=== PATIENT | female | born 1995 | race Caucasian/White ===

== ENCOUNTER → 2020-08-31 12:40 | Outpatient (CLI) | payer OTHER, SELFPAY ==
[2020-08-27 08:18] VITALS: BMI 23.4
--- NOTE | 2020-08-31 12:45 | US_ITS ---
STUDY: ULTRASOUND OF THE FEMALE PELVIS - COMPLETE REASON FOR EXAM: Female, 25 years old. painful/heavy menses LMP: 08/04/2020 TECHNIQUE: Transabdominal and Transvaginal TECHNICAL QUALITY: Adequate. COMPARISON: None. FINDINGS: The uterus is anteverted and is in a midline position. The uterus measures 5.6 x 4.5 x 2.9 cm. Normal uterine cervix. The endometrium measures 5 mm in thickness, and is hyperechoic. There is no demonstrated endometrial mass. There is no demonstrated myometrial mass. I.U.D. - The patient does not have an I.U.D. The right ovary is visualized. The right ovary measures 1.6 x 1.4 x 1.4 cm. There is no right ovarian cyst or ovarian mass. There is no visualized right adnexal mass or complex lesion. There is normal arterial and normal venous vascularity. The left ovary is visualized. The left ovary measures 1.9 x 1.2 x 1.0 cm. There is no left ovarian cyst or ovarian mass. There is no visualized left adnexal mass or complex lesion. There is normal arterial and normal venous vascularity. There is no fluid in the cul-de-sac. The pre void volume of the bladder was ml. The post void volume of the bladder was ml. Polycystic ovary disease: No. US/Transvaginal Non- IMPRESSION: Normal female pelvis. Electronically Signed: Binh Hilario MD at 15:42 EST Tel , Service support ,
--- NOTE | 2020-08-31 12:45 | US_ITS ---
STUDY: ULTRASOUND OF THE FEMALE PELVIS - COMPLETE REASON FOR EXAM: Female, 25 years old. painful/heavy menses LMP: 08/04/2020 TECHNIQUE: Transabdominal and Transvaginal TECHNICAL QUALITY: Adequate. COMPARISON: None. FINDINGS: The uterus is anteverted and is in a midline position. The uterus measures 5.6 x 4.5 x 2.9 cm. Normal uterine cervix. The endometrium measures 5 mm in thickness, and is hyperechoic. There is no demonstrated endometrial mass. There is no demonstrated myometrial mass. I.U.D. - The patient does not have an I.U.D. The right ovary is visualized. The right ovary measures 1.6 x 1.4 x 1.4 cm. There is no right ovarian cyst or ovarian mass. There is no visualized right adnexal mass or complex lesion. There is normal arterial and normal venous vascularity. The left ovary is visualized. The left ovary measures 1.9 x 1.2 x 1.0 cm. There is no left ovarian cyst or ovarian mass. There is no visualized left adnexal mass or complex lesion. There is normal arterial and normal venous vascularity. There is no fluid in the cul-de-sac. The pre void volume of the bladder was ml. The post void volume of the bladder was ml. Polycystic ovary disease: No. US/Pelvic (Non ) IMPRESSION: Normal female pelvis. Electronically Signed: Binh Hilario MD at 15:42 EST Tel , Service support ,
== END ==
PROVIDERS: PCP Family Medicine; Referring Provider Obstetrics & Gynecology; Visit Provider Obstetrics & Gynecology
DX: R10.2 Pelvic and perineal pain (principal)
CPT/HCPCS: 76830; 76856

== ENCOUNTER 2020-09-08 10:50 | Day surgery (SDC) | payer OTHER, SELFPAY ==
[2020-08-27 08:18] VITALS: BMI 23.4
[2020-09-07 10:07] LABS: Hematocrit 46.5 % (37-47); Hemoglobin 14.6 g/dL (12.0-15.0); Mean Corp Hgb Conc 31.4 g/dL (32-36); Mean Corpuscular Hgb 28.1 pg (27.0-32.0); Mean Corpuscular Volume 89.6 fL (81-99); Mean Platelet Vol. 10.8 fl (6.2-12.0); Platelet Count 198 K/mm3 (150-450); RBC Distribution Width CV 13.2 % (11.6-14.6); RBC Distribution Width SD 43.3 fl (35.1-43.9); Red Blood Count 5.19 M/mm3 (4.2-5.4); White Blood Count 5.5 K/mm3 (4.4-11.0)
[2020-09-08] VITALS (9 sets, daily range): BP systolic 99–121; BP diastolic 65–85; PULSE 69–89; RESP 16–20; TEMP 36.1–37.2; O2SAT 100; BMI 23.4
--- NOTE | 2020-09-08 11:19 | PCM.HPOB.BLA ---
- Problem List (1) Pelvic pain Status: Acute History and Physical Date of Admission: 09/08/20 Intake Vital Signs 08/27/20 Height 5 ft 4 in 08/27/20 Weight: 136 lb 8 oz 08/27/20 BP 120/80 Intake Visit Reasons: John, Endometriosis consult, ref by Lázaro [facility] Collection Manager Required: No Is patient in pain?: Yes Allergies No Known Allergies Allergy (Verified 08/27/20 08:19) Medications hyoscyamine sulfate 0.125 mg disintegrating tablet 0.125 mg PO BID-QID PRN 08/19/20 [History Confirmed 08/27/20] rizatriptan 10 mg disintegrating tablet 10 mg PO ONCE PRN 08/19/20 [History Confirmed 08/27/20] topiramate 50 mg tablet 50 mg PO DAILY tab 08/19/20 [History Confirmed 08/27/20] desogestrel 0.15 mg-ethinyl estradiol 0.03 mg tablet 1 tab PO DAILY 08/27/20 [History Confirmed 08/27/20] pantoprazole 40 mg tablet,delayed release 40 mg PO DAILY 08/27/20 [History Confirmed 08/27/20] Post menopausal: No Patient : No : No PFSH Medical History Dysmenorrhea (Acute) Migraine (Acute) Normal colonoscopy (Resolved ~07/15/20) Surgical History (Updated 08/27/20 @ 08:20 by Jeri Rhodes) S/P appendectomy (Resolved) S/P cholecystectomy (Resolved) Family History (Updated 08/27/20 @ 08:21 by Jeri Rhodes) Grandfather Esophageal cancer HPI New, Endometriosis consult, ref by Lázaro Family: Details: SAPPHIRE BURR is a 25 year old who presents for pelvic pain. Reports abdominal pain since June. Last month, started noticing severe pain in her lwoer abdomen around the time of her period. Has been on 7 different control pills. Initially started on OCPs for heavy flow and migraines. Has been on OCPs since 13 years old. Reports severe pain with menses. Reports some relief with NSAIDs. Previously tried depo provera for 9 months and bled continuously. Pain primarily in RLQ. Pain varies from week before period, week of period, and week after. Has not tried continuous OCPs. Reports some discomfort with urination while on period. Reports pain with bowel movements when on periods. Not sexually active. Periods typically last 1 week. Changes protection 7-10x/day on worst day of period. ROS ROS Const Reports system reviewed and no additional complaints, except as documented Card Reports system reviewed and no additional complaints, except as documented Resp Reports system reviewed and no additional complaints, except as documented GI Reports system reviewed and no additional complaints, except as documented Reports system reviewed and no additional complaints, except as documented Musc Reports system reviewed and no additional complaints, except as documented all other systems reviewed and negative Exam Const General: cooperative, healthy appearing, comfortable, well developed, well groomed Orientation: alert, awake, oriented x3 Neck Neck: normal visual inspection, full ROM Resp Effort & Inspection: normal respiratory effort, able to speak in complete sentences, symmetric chest movement Cardio Rate: regular rate Skin General: no rashes or lesions noted, elasticity normal, turgor normal Lesions: no lesions Rashes: no rashes Neuro General: alert, awake, oriented x3 Cranial Nerves: CN's II-XI intact bilaterally, PERRL, EOM intact bilaterally Cognition: normal cognition Speech: speech normal Gait: normal gait Extrem General: normal to inspection, full ROM, no pedal edema Psych Appearance: grossly normal Mental Status: mental status grossly normal Mood: congruent mood Affect: normal affect Speech and Movement: speech and movement normal Attitude: cooperative Thought Process: normal Thought Content: normal Assessment & Plan 1. Pelvic pain R10.2 Plan Patient presents for pelvic pain associated with menses. Has failed 7 different OCPs, depo provera, and NSAIDs in the past. Reports history of ovarian cysts, but has not had an ultrasound - ultrasound ordered Discussed that symptoms are consistent with endometriosis. Discussed that she has failed first line therapy at this time. Discussed that next step in management is laparoscopy for definitive diagnosis. The nature of the procedure was discussed with the patient. Risks, benefits, indications, and alternatives to the procedure were discussed with the patient including bleeding, infection, and visceral or vascular injury. Agreeable to blood products if medically necessary. Discussed possibility of infection inside abdomen or at incision sites which could require outpatient or inpatient antibiotics. Discussed the possibility of injury to uterus, tubes, ovaries, bowel, and bladder. Aware that this could require intra-op consult to general surgery or urology. Also aware of the possibility of prolonged hospitalization or reoperation. Discussed possibility of need to convert to open to procedure. All questions were answered. Patient voices understanding and agrees to proceed. Discussed IUD placement at time of surgery to try to decrease chances of recurrence. Plan for diagnostic laparoscopy, possible fulguration of endometriosis, IUD placement. UPDATE- I have seen the patient and performed any clinically relevant updates to the history and physical exam. Sapphire Escamilla MD
--- NOTE | 2020-09-08 11:21 | PCM.DC.TUB ---
Discharge Diet: No Restrictions, - - Increase fluid intake for 48 hours. Discharge Activity: Return to Normal Activity, May Drive - when you are no longer taking narcotic pain medications., May Shower, May Take a Tub Bath - in 7 days., - - Ambulate often the next week after surgery. Additional Activity Instructions:: Nothing in the vagina for the next 5 days. Call your doctor if your incision/area has: Continuous Slow Oozing, Sudden Increased Bleeding, Increased Pain/ Swelling, Increased Redness, Foul Smelling Discharge, Swelling at the incision site Call your doctor if you observe: Fever of 101 or Higher Allergies/Adverse Reactions: Allergies No Known Allergies Allergy (Verified 09/02/20 13:28) Medications to take at Discharge hyoscyamine sulfate 0.125 mg disintegrating tablet 0.125 mg PO BID-QID PRN 08/19/20 rizatriptan 10 mg disintegrating tablet 10 mg PO ONCE PRN 08/19/20 topiramate 50 mg tablet 50 mg PO QHS tab 08/19/20 desogestrel 0.15 mg-ethinyl estradiol 0.03 mg tablet 1 tab PO DAILY 08/27/20 pantoprazole 40 mg tablet,delayed release 40 mg PO DAILY 08/27/20 Orders to be completed after discharge: ,Urine Time Frame: 09/08/20, Facility: [facility], Location: Laboratory Primary Care Physician: Jessica Johnson PA-C [Primary Care Provider] - Test Results: Test results from this visit will be discussed in further detail at your follow-up appointment, if applicable.
--- NOTE | 2020-09-08 11:25 | PCM.OPRPT ---
Problem List (1) Pelvic pain Status: Acute Report of Operation Date of Procedure: 09/08/20 Pre-Operative Diagnosis: Pelvic pain, suspected endometriosis Post-Operative Diagnosis: Endometriosis Surgery/Procedure Performed:: Diagnostic laparoscopy, fulguration of endometriosis, liletta IUD placement Description of Surgical Findings:: Normal appearing uterus, tubes, and ovaries bilaterally. Implants of endometriosis noted on the left pelvic side wall, anterior abdominal wall near the bladder, bladder peritoneum, ovarian fossa bilaterally, and uterosacral ligaments bilaterally. Surgical changes consistent with prior appendectomy noted. 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 She was prepped and draped in the dorsal lithotomy position with yellofin stirrups. A weighted speculum was placed in the posterior aspect of the vagina and the anterior lip of the cervix was grasped with a single-tooth tenaculum. A Zumi uterine manipulator was placed without difficulty and all other instruments were removed from the vagina. Gloves were changed and attention was directed to the abdomen. The umbilicus was grasped with towel clamps. 10cc of 0.25% marcaine was used to anesthetize the umbilicus. A 5mm incision was made at the base of the umbilicus. A veress needle was inserted without difficulty and intra-abdominal placement was confirmed using the water-drop test. The abdomen was insufflated to 15 mmHg and the veress needle was removed. A 5mm optiview trochar was then placed under direct visualization. Initial survey of the abdominal cavity revealed no evidence of trauma. The above findings were noted. Additional 5mm ports were placed in the right and left lower quadrants. Monopolar cautery attached to a [place] grasper was used to fulgurate all visible areas of endometriosis. All instruments were removed from the abdominal cavity. The port sites were closed in a simple interrupted fashion using 3-0 monocryl and sterile dressings were placed. The uterine manipulator was removed. The cervix was grasped with a single-tooth tenaculum. The Liletta IUD was placed without difficulty using the applicator and the strings were trimmed to approximately 3cm. All instruments were removed from the vagina. The patient was awakened from anesthesia and taken to the recovery room in stable condition. - Complications None apparent - Admit VTE Documentation VTE Present on Admission: No VTE Mechan Device Prophylaxis: SCD's VTE Pharm Prophylaxis ordered?: No Multi Select Codes - Urinary/Genital Urinary/Genital CPT Codes: 73943 Insert IUD, 07037 Laproscopic ablation endometriosis
[2020-09-08] MEDS: Lactated Ringers 1,000 ML 75 ML IV (11:30)
[2020-09-08 12:01] LABS: Internal QC Validated? YES +Cl - CLEAR BKGD; Pregnancy, Urine Negative Negative
[2020-09-08] MEDS: Bupivacaine 0.25% 30 ML Vial (13:00)
[2020-09-08] MEDS: Lubricating Jelly 60 GM Tube 30 GM TOPICAL (13:00)
[2020-09-08] MEDS: Levonorgestrel IUD (Liletta) 1 EACH INTRA-UTER (13:30)
== END 2020-09-08 17:34 | disposition home or self-care (01) ==
LOC: SDC 10:52 → AC 10:52
PROVIDERS: PCP Family Medicine; Referring Provider Obstetrics & Gynecology; Visit Provider Obstetrics & Gynecology
PROC: (CPT 49320; principal; 2020-09-08 12:15)
DX: N80.1 Endometriosis of ovary (principal); N80.3 Endometriosis of pelvic peritoneum; Z30.430 Encounter for insertion of intrauterine contraceptive device; K21.9 Gastro-esophageal reflux disease without esophagitis; K58.9 Irritable bowel syndrome, unspecified; G43.909 Migraine, unspecified, not intractable, without status migrainosus; Z90.49 Acquired absence of other specified parts of digestive tract; Z79.82 Long term (current) use of aspirin; Z79.899 Other long term (current) drug therapy; Z20.828 Contact with and (suspected) exposure to other viral communicable diseases
CPT/HCPCS: 00840; 58300; 58662; 36415; 81025; 85027; 86850; 86900; 86901; 87426; C9803; J7120; J2405

== ENCOUNTER → 2020-12-09 | Outpatient (CLI) | payer OTHER, SELFPAY ==
[2020-12-09 14:51] VITALS: BMI 23.1
== END | disposition home or self-care (01) ==
LOC: LABSPEC 17:37
PROVIDERS: PCP Family Medicine; Visit Provider Obstetrics & Gynecology
DX: N89.8 Other specified noninflammatory disorders of vagina (principal); R10.2 Pelvic and perineal pain
CPT/HCPCS: 87070; 87205

== ENCOUNTER → 2020-12-14 16:27 | Outpatient (CLI) | payer OTHER, SELFPAY ==
[2020-12-09 14:51] VITALS: BMI 23.1
--- NOTE | 2020-12-14 16:30 | US_ITS ---
STUDY: ULTRASOUND OF THE FEMALE PELVIS - COMPLETE REASON FOR EXAM: Female, 25 years old. Pelvic pain LMP: None TECHNIQUE: Transabdominal and Transvaginal TECHNICAL QUALITY: Adequate. COMPARISON: Comparison is made with prior examination dated 08/31/2020. FINDINGS: The uterus is anteverted and is in a midline position. The uterus measures 5.4 cm x 3.8 cm x 2.8 cm. Normal uterine cervix. The endometrium measures 2 mm in thickness, and is hyperechoic. There is no demonstrated endometrial mass. There is no demonstrated myometrial mass. I.U.D. - The patient does have an I.U.D. The right ovary is visualized. The right ovary measures 1.7 cm x 1.4 cm x 1.3 cm. There is no right ovarian cyst or ovarian mass. There is no visualized right adnexal mass or complex lesion. There is normal arterial and normal venous vascularity. The left ovary is visualized. The left ovary measures 3.1 cm x 1.6cm x 1.5 cm. There is no left ovarian cyst or ovarian mass. There is no visualized left adnexal mass or complex lesion. There is normal arterial and normal venous vascularity. There is no fluid in the cul-de-sac. The pre void volume of the bladder was 89.4 ml. Polycystic ovary disease: No. US/Pelvic (Non ) IMPRESSION: IUD is seen within the endometrium. Electronically Signed: Willis Sullivan MD at 13:46 EDT , Service support ,
--- NOTE | 2020-12-14 16:30 | US_ITS ---
STUDY: ULTRASOUND OF THE FEMALE PELVIS - COMPLETE REASON FOR EXAM: Female, 25 years old. Pelvic pain LMP: None TECHNIQUE: Transabdominal and Transvaginal TECHNICAL QUALITY: Adequate. COMPARISON: Comparison is made with prior examination dated 08/31/2020. FINDINGS: The uterus is anteverted and is in a midline position. The uterus measures 5.4 cm x 3.8 cm x 2.8 cm. Normal uterine cervix. The endometrium measures 2 mm in thickness, and is hyperechoic. There is no demonstrated endometrial mass. There is no demonstrated myometrial mass. I.U.D. - The patient does have an I.U.D. The right ovary is visualized. The right ovary measures 1.7 cm x 1.4 cm x 1.3 cm. There is no right ovarian cyst or ovarian mass. There is no visualized right adnexal mass or complex lesion. There is normal arterial and normal venous vascularity. The left ovary is visualized. The left ovary measures 3.1 cm x 1.6cm x 1.5 cm. There is no left ovarian cyst or ovarian mass. There is no visualized left adnexal mass or complex lesion. There is normal arterial and normal venous vascularity. There is no fluid in the cul-de-sac. The pre void volume of the bladder was 89.4 ml. Polycystic ovary disease: No. US/Transvaginal Non- IMPRESSION: IUD is seen within the endometrium. Electronically Signed: Willis Sullivan MD at 13:46 EDT , Service support ,
== END ==
PROVIDERS: PCP Family Medicine; Referring Provider Obstetrics & Gynecology; Visit Provider Obstetrics & Gynecology
DX: R10.2 Pelvic and perineal pain (principal)
CPT/HCPCS: 76830; 76856; 93976

== ENCOUNTER → 2021-08-16 16:14 | Outpatient (CLI) | payer OTHER, SELFPAY ==
[2021-08-16 16:33] LABS: Erythrocyte Sedimentation Rate 2 mm/hr (0-30)
[2021-08-16 17:21] LABS: CRP < 2.90 mg/L (0.0-3.0); Thyroid Stim Hormone (TSH) 0.48 uIU/mL (0.358-3.74)
[2021-08-18 16:09] LABS: Endomysial Antibody IgA Negative (Negative)
[2021-08-18 19:00] LABS: Immunoglobulin A 192 mg/dL (87-352); t-Transglutaminase IgA <2 U/mL (0-3)
[2021-08-19 15:28] LABS: Vitamin D 1,25-Dihydroxy 50.4 pg/mL (19.9-79.3)
== END ==
PROVIDERS: PCP Family Medicine; Referring Provider Internal Medicine Gastroenterology; Visit Provider Internal Medicine Gastroenterology
DX: R10.9 Unspecified abdominal pain (principal)
CPT/HCPCS: 36415; 82652; 82784; 83516; 84443; 85652; 86140; 86255

== ENCOUNTER 2021-09-15 07:28 | Day surgery (SDC) | payer OTHER, SELFPAY ==
--- NOTE | 2021-09-15 | IMM_PTH ---
PATIENT: RADHA RODRIGUEZ LOC: EN U#:[id number] AGE/SX: 26/F ROOM: RE09/15/[address]: Dr. Landry Marr DO : 1995 BED: DIS: 09/15/2021 SPEC #: [id number] RECD: 09/16/21 13:04 STATUS: CRISTA REJose Antonio #: [id number] [place]: 09/15/21 00:[address]: Landry Marr DEPT: IMMUNOHISTOCHEMISTRY RECD BY: Lauren Valdes ENTERED: 09/16/21 13:04 SP TYPE: IMMUNO OT DR: No Primary Care Phys Tissues: A - Stomach, NOS Procedures: H Pylori (initial) PHYSICIAN & INSTITUTION [place] [id number] SPECIMEN INFORMATION: Tissue Source: A ? Gastric body biopsy Clinical Info: Abdominal pain, constipation, diarrhea Specimen Number: [id number] CPT code: 36134 METHODOLOGY: Deparaffinized sections of prefer/formalin-fixed tissue or PAP/DQ stained slides are incubated with monoclonal/polyclonal antibodies/oligonucleotide probes. Localization is made via biotin free immunoperoxidase method. Appropriate controls are performed and reacted as expected. Results on target cell population are indicated in the following table: RESULTS: ANTIBODY / CLONE RESULT Block A H Pylori (polyclonal) negative These tests were developed and their performance characteristics determined by [facility]. They may not have been cleared or approved by the U.S. Food and Drug Administration. The FDA has determined that such clearance or approval is not necessary. The above immunohistochemical/dualISH markers are ordered and reviewed by the Pathologist. INTERPRETATION: A. Gastric body biopsy: Negative for Helicobacter pylori organisms. SJ:gabriel 09/20/2021
[2021-09-15 07:59] VITALS: BP 89/43; PULSE 85; RESP 16; TEMP 36.6; O2SAT 100; BMI 20.8
[2021-09-15 08:10] LABS: Internal QC Validated? YES +Cl - CLEAR BKGD; Pregnancy, Urine Negative Negative
--- NOTE | 2021-09-15 08:45 | EGD_PTH ---
PATIENT: RADHA RODRIGUEZ LOC: EN U#:[id number] AGE/SX: 26/F ROOM: RE09/15/[address]: Dr. Landry Marr DO : 1995 BED: DIS: 09/15/2021 SPEC #: [id number] RECD: 09/15/21 10:37 STATUS: CRISTA REJose Antonio #: [id number] [place]: 09/15/21 08:[address]: Landry Marr DEPT: SURGICAL PATHOLOGY RECD BY: Theresa Hollis ENTERED: 09/15/21 12:26 SP TYPE: EGD BIOPSY OTHR DR: No Primary Care Phys Tissues: A - Gastric mucous membrane B - Small intestine biopsy C - Esophagus, NOS D - Ileum, NOS E - Cecum, NOS F - COLON BIOPSY Procedures: Special Stain Group II Surgery Specimen Level IV Alcian Blue/PAS (control) HEADER OPERATION: Colonoscopy, EGD ([facility]) PRE-OP DIAGNOSIS: Abdominal pain, alternating constipation and diarrhea TISSUE SUBMITTED: A ? Gastric body biopsy, B ? Small bowel biopsy, C ? Distal esophagus biopsy, D ? Terminal ileum biopsy, E ? Biopsy of cecum polyp, F ? Random colon biopsies MICROSCOPIC DIAGNOSIS A. Gastric body, biopsy: Mild gastritis. See microscopic description and comment. B. Small bowel biopsy: Fragments of small intestinal mucosa, no pathologic diagnosis. C. Distal esophagus, biopsy: Fragments of gastric mucosa with mild chronic inflammation. Intestinal metaplasia (goblet cell metaplasia) not identified. See comment. D. Terminal ileum, biopsy: Fragments of small intestinal mucosa, no pathologic diagnosis. E. Cecum polyp, biopsy: Consistent with inflammatory polyp. F. Colon, random biopsy: Fragments of colonic mucosa, no pathologic diagnosis. SJ:gabriel 09/16/2021 COMMENT A. The results of immunohistochemistry for Helicobacter pylori will be reported separately ([id number]). C. Alcian blue/PAS stain with matched control is used in the evaluation of the specimen. MICROSCOPIC DESCRIPTION Slides are reviewed. A. The specimen shows fragments of gastric mucosa with chronic inflammatory cell infiltrates in the lamina propria consisting of lymphocytes and plasma cells, consistent with mild chronic gastritis. GROSS DESCRIPTION A - Received in fixative is one container labeled with the patient's name and designated gastric body biopsy. The specimen consists of multiple irregular fragments of light ivey soft tissue that in aggregate measure 1 x 0.8 x 0.1 cm. The specimen is totally submitted in one cassette. B - Received in fixative is one container labeled with the patient's name and designated small bowel biopsy. The specimen consists of multiple irregular fragments of light ivey soft tissue that in aggregate measure 1 x 0.3 x 0.1 cm. The specimen is totally submitted in one cassette. C - Received in fixative is one container labeled with the patient's name and designated distal esophagus biopsy. The specimen consists of multiple irregular fragments of light ivey soft tissue that in aggregate measure 0.6 x 0.5 x 0.1 cm. The specimen is totally submitted in one cassette. D - Received in fixative is one container labeled with the patient's name and designated terminal ileum biopsy. The specimen consists of multiple irregular fragments of light ivey soft tissue that in aggregate measure 1 x 0.3 x 0.1 cm. The specimen is totally submitted in one cassette. E - Received in fixative is one container labeled with the patient's name and designated cecum polyp. The specimen consists of two irregular fragments of light ivey soft tissue that in aggregate measure 0.3 x 0.3 x 0.1 cm. The specimen is totally submitted in one cassette. F - Received in fixative is one container labeled with the patient's name and designated random colon biopsy. The specimen consists of multiple irregular fragments of light ivey soft tissue that in aggregate measure 2 x 0.6 x 0.1 cm. The specimen is totally submitted in one cassette. / SJ:rg 09/15/21 TC:5 CPT: 20577 x6, [id number]
--- NOTE | 2021-09-15 08:50 | PCM.HP.BLA ---
History and Physical Date of Admission: 09/15/21 Details: RADHA BURR, is a 26 F who presents to the office today for Referred by urology and [employer]. RUQ cramping/aching pain that is persistent with midepigastric burning. Will also get some stomach pains with intake and diarrhea. Midepigastric burning presented first about a year ago. Presented to [facility] ED because the midepigastric pain was causing SOB, bloodwork performed and fluids administered. PCP then seen who had CT Scan. Previously taken famotidine, omeprazole, protonix with little to no effect. Dr. Quintero recommended an altered, more bland diet for GERD. History of endometriosis which was performed 09/06, that was throughout abdomen and on bladder. ROS Const Constitutional: No anorexia, fatigue, fever(s), weight change or sleep problems Eyes Eyes: No change in vision ENT ENT: No abnormal hearing, difficulty swallowing, mouth lesions, tongue swelling or throat swelling Resp Respiratory: No cough or shortness of breath Cardio Cardiology: No chest pain at rest, chest pain with exertion, shortness of breath or dyspnea on exertion Gastro GI: No difficulty swallowing Genitourinary-Female: No difficulty urinating or burning urination Musc Musculoskeletal: No joint pain, joint swelling, muscle weakness or decreased muscle mass Skin Skin: No hair loss in leg, yellowing of the eye, itchy eyes, rash, skin ulcer or skin swelling Neuro Neurology: No abnormal hearing, abnormal movements, confusion, unsteady gait/balance or memory loss Psych Psychiatric: No anxiety, No confusion and No memory loss Endo Endocrine: No fatigue or weight change Aller/Imm Allergy/Immunologic: No itchy eyes, throat swelling or tongue swelling Wing/Lymp Hematologic/Lymphatic: No easy bleeding, easy bruising or enlarged lymph nodes Exam Const General: cooperative and comfortable Nutritional Appearance: average body habitus and well nourished [facility] Head: normal to inspection Ears: hearing grossly normal bilaterally Nose: external nose normal Face and sinus: normal facial exam Mouth: oral mucosae normal Throat: posterior oropharynx normal Eyes General: appearance normal, both eyes and all related structures Neck Neck: normal visual inspection Chest Chest palpation & inspection: normal inspection of the chest and normal palpation of entire chest wall Resp Effort & Inspection: normal respiratory effort Auscultation: Bilateral: Clear to Auscultation Cardio Palpation: normal PMI Rate: regular rate Rhythm: regular rhythm GI Inspection: normal to inspection Auscultation: normal bowel sounds Percussion: normal to percussion Palpation: no hepatosplenomegaly Skin General: no rashes or lesions noted Neuro General: patient alert Extrem General: normal to inspection Psych Affect: normal affect Quality Reporting Tobacco Screening ([facility]) Smoking Status: Never smoker Assessment and Plan Assessment and Plan (1) Abdominal pain: Status: Acute Orders: Orders: CRP Today Thyroid Stim Hormone (TSH) Today Erythrocyte Sed Rate Today Vitamin D 1,25-Dihydroxy Today Celiac Disease Profile Today Plan - Dr. Alatorre Friend, DO: We will check inflammatory markers such as ESR and CRP. We'll also check a celiac profile and thyroid studies. I believe her abdominal pain is multifactorial. It does seem as if it is more functional than organic in nature. However because of her symptoms have gotten worse in regarding of abdominal pain she has not been able to eat and she recently had to go to the ER due to worsening abdominal pain. therefore I think we should do an full evaluation endoscopically, biochemically neurologically. (2) Alternating constipation and diarrhea: Status: Acute Plan - Dr. Alatorre Friend, DO: Her symptoms sound like IBS patient has history of chronic constipation. However we will evaluate her colon for any structural abnormalities that she may need evaluation for pelvic floor dysfunction and/or slow transit constipation. I have re-examined the patient. There are no clinical changes since date of exam.
--- NOTE | 2021-09-15 09:12 | OP.EGD_ITS ---
Patient Name: Sapphire Brown Procedure Date: 09/15/2021 8:51 AM Date of : 1995 Age: 26 Procedure: Upper GI endoscopy Indications: Epigastric abdominal pain Providers: Landry Marr DO Medicines: See the Anesthesia note for documentation of the administered medications Patient Profile: This is a 26 year old female. Refer to note in patient chart for documentation of history and physical. Patient has symptoms of acute abdominal cramping, acute abdominal distention and chronic epigastric abdominal pain. Complications: No immediate complications. Procedure: Pre-Anesthesia Assessment: - Prior to the procedure, a History and Physical was performed, and patient medications and allergies were reviewed. The patient is competent. The risks and benefits of the procedure and the sedation options and risks were discussed with the patient. All questions were answered and informed consent was obtained. Patient identification and proposed procedure were verified by the physician in the pre-procedure area. Mental Status Examination: alert and oriented. Airway Examination: normal oropharyngeal airway and neck mobility. Respiratory Examination: clear to auscultation. CV Examination: normal. Prophylactic Antibiotics: The patient does not require prophylactic antibiotics. Prior Anticoagulants: The patient has taken no previous anticoagulant or antiplatelet agents. ASA Grade Assessment: II - A patient with mild systemic disease. After reviewing the risks and benefits, the patient was deemed in satisfactory condition to undergo the procedure. The anesthesia plan was to use moderate sedation / analgesia (conscious sedation). Immediately prior to administration of medications, the patient was re-assessed for adequacy to receive sedatives. The heart rate, respiratory rate, oxygen saturations, blood pressure, adequacy of pulmonary ventilation, and response to care were monitored throughout the procedure. The physical status of the patient was re-assessed after the procedure. After obtaining informed consent, the endoscope was passed under direct vision. Throughout the procedure, the patient's blood pressure, pulse, and oxygen saturations were monitored continuously. The gastroscope was introduced through the mouth, and advanced to the second part of duodenum. The upper GI endoscopy was accomplished without difficulty. The patient tolerated the procedure well. Moderate Sedation: Moderate (conscious) sedation was administered by the endoscopy nurse and supervised by the endoscopist. The patient's oxygen saturation, heart rate, blood pressure and response to care were monitored. Total physician intraservice time was 15 minutes. Scope In: 9:02:02 AM Scope Out: 9:08:06 AM Total Procedure Duration Time 0 hours 6 minutes 4 seconds Findings: LA Grade A (one or more mucosal breaks less than 5 mm, not extending between tops of 2 mucosal folds) esophagitis with no bleeding was found 34 to 36 cm from the incisors. Biopsies were taken with a cold forceps for histology. Verification of patient identification for the specimen was done. Estimated blood loss was minimal. Diffuse severely erythematous mucosa without bleeding was found in the entire examined stomach. This was biopsied with a cold forceps for histology. Verification of patient identification for the specimen was done. Estimated blood loss was minimal. The second portion of the duodenum was normal. Biopsies were taken with a cold forceps for histology. Verification of patient identification for the specimen was done. Estimated blood loss was minimal. Impression: - LA Grade A reflux esophagitis. Biopsied. - Erythematous mucosa in the stomach. Biopsied. - Normal second portion of the duodenum. Biopsied. Recommendation: - Discharge patient to home. - Resume previous diet. - Continue present medications. - Await pathology results. - Repeat upper endoscopy in 1 year for surveillance. - Return to GI office in 2 weeks. Procedure Code(s): --- Professional --- 68819, Esophagogastroduodenoscopy, flexible, transoral; with biopsy, single or multiple 16098, 59, Moderate sedation services provided by the same physician or other qualified health care transition manager performing the diagnostic or therapeutic service that the sedation supports, requiring the presence of an independent trained observer to assist in the monitoring of the patient's level of consciousness and physiological status; initial 15 minutes of intraservice time, patient age 5 years or older CPT copyright 2017 [employer]. All rights reserved. The codes documented in this report are preliminary and upon dumper operator review may be revised to meet current compliance requirements. Landry Marr DO 09/15/2021 9:12:08 AM This report has been signed electronically. Number of Addenda: 1 Note Initiated On: 09/15/2021 8:51 AM Addendum Number: 1 Addendum Date: 05/25/2022 7:28:12 AM MAC was used instead of moderate sedation for the patient. Landry Marr DO 05/25/2022 7:28:16 AM This report has been signed electronically.
--- NOTE | 2021-09-15 09:13 | OP.CCLET_ITS ---
05/25/2022 [facility] Re : Upper GI endoscopy procedure for Sapphire Nelson Nerinx This procedure was performed on Wednesday, September 15, 2021. My impressions and recommendations are as follows: Impressions : - LA Grade A reflux esophagitis. Biopsied. - Erythematous mucosa in the stomach. Biopsied. - Normal second portion of the duodenum. Biopsied. Recommendations : - Discharge patient to home. - Resume previous diet. - Continue present medications. - Await pathology results. - Repeat upper endoscopy in 1 year for surveillance. - Return to GI office in 2 weeks. My findings are described in the full procedure note, which is enclosed. If I can be of further assistance, please feel free to contact me at . Sincerely, Landry Marr, 09/15/2021 9:12:08 AM This report has been signed electronically.
[2021-09-15 09:40] VITALS: BP 101/68; BP 89/43; PULSE 87; RESP 16; TEMP 36.6; O2SAT 100
--- NOTE | 2021-09-15 09:43 | OP.COLON_ITS ---
Patient Name: Sapphire Brown Procedure Date: 09/15/2021 9:08 AM Date of : 1995 Age: 26 Procedure: Colonoscopy Indications: This is the patient's first colonoscopy, Lower abdominal pain Providers: Landry Marr DO Medicines: See the Anesthesia note for documentation of the administered medications Patient Profile: This is a 26 year old female. Refer to note in patient chart for documentation of history and physical. Patient has symptoms of acute abdominal cramping, acute abdominal distention and chronic epigastric abdominal pain. Last Colonoscopy: none. The patient's first colonoscopy is today. Complications: No immediate complications. Procedure: Pre-Anesthesia Assessment: - Prior to the procedure, a History and Physical was performed, and patient medications and allergies were reviewed. The patient is competent. The risks and benefits of the procedure and the sedation options and risks were discussed with the patient. All questions were answered and informed consent was obtained. Patient identification and proposed procedure were verified by the physician in the pre-procedure area. Mental Status Examination: alert and oriented. Airway Examination: normal oropharyngeal airway and neck mobility. Respiratory Examination: clear to auscultation. CV Examination: normal. Prophylactic Antibiotics: The patient does not require prophylactic antibiotics. Prior Anticoagulants: The patient has taken no previous anticoagulant or antiplatelet agents. ASA Grade Assessment: II - A patient with mild systemic disease. After reviewing the risks and benefits, the patient was deemed in satisfactory condition to undergo the procedure. The anesthesia plan was to use moderate sedation / analgesia (conscious sedation). Immediately prior to administration of medications, the patient was re-assessed for adequacy to receive sedatives. The heart rate, respiratory rate, oxygen saturations, blood pressure, adequacy of pulmonary ventilation, and response to care were monitored throughout the procedure. The physical status of the patient was re-assessed after the procedure. After I obtained informed consent, the scope was passed under direct vision. Throughout the procedure, the patient's blood pressure, pulse, and oxygen saturations were monitored continuously. The Duodenoscope was introduced through the anus and advanced to the terminal ileum. The Colonoscope was introduced through the anus and advanced to. The colonoscopy was performed without difficulty. The patient tolerated the procedure well. The quality of the bowel preparation was good. Moderate Sedation: Moderate (conscious) sedation was administered by the endoscopy nurse and supervised by the endoscopist. The patient's oxygen saturation, heart rate, blood pressure and response to care were monitored. Total physician intraservice time was 15 minutes. Scope In: 9:23:03 AM Scope Withdrawal Time 0 hours 9 minutes 6 seconds Scope Out: 9:36:34 AM Total Procedure Duration Time 0 hours 13 minutes 31 seconds Findings: The perianal exam findings include Very poor rectal tone. The colon (entire examined portion) appeared normal. Biopsies for histology were taken with a cold forceps from the ascending colon, right colon, left colon, transverse colon, right transverse colon, left transverse colon, descending colon, sigmoid colon and rectum for evaluation of microscopic colitis. Verification of patient identification for the specimen was done. Estimated blood loss was minimal. A 4 mm polyp was found in the cecum. The polyp was sessile. The polyp was removed with a hot snare. Resection and retrieval were complete. Verification of patient identification for the specimen was done. Estimated blood loss was minimal. The terminal ileum appeared normal. Biopsies for histology were taken with a cold forceps for evaluation of microscopic colitis. Verification of patient identification for the specimen was done. Estimated blood loss was minimal. Impression: - Very poor rectal tone found on perianal exam. - The entire examined colon is normal. Biopsied. - One 4 mm polyp in the cecum, removed with a hot snare. Resected and retrieved. Recommendation: - Repeat colonoscopy in 5 years for surveillance based on pathology results. - Return to GI office in 2 weeks. - Continue present medications. Procedure Code(s): --- Professional --- 58035, Colonoscopy, flexible; with removal of tumor(s), polyp(s), or other lesion(s) by snare technique 95103, 59, Colonoscopy, flexible; with biopsy, single or multiple 48827, 59, Moderate sedation services provided by the same physician or other qualified health insurance healthcare consultant performing the diagnostic or therapeutic service that the sedation supports, requiring the presence of an independent trained observer to assist in the monitoring of the patient's level of consciousness and physiological status; initial 15 minutes of intraservice time, patient age 5 years or older CPT copyright 2017 [employer]. All rights reserved. The codes documented in this report are preliminary and upon coil winder strap review may be revised to meet current compliance requirements. Landry Marr DO 09/15/2021 9:43:02 AM This report has been signed electronically. Number of Addenda: 1 Note Initiated On: 09/15/2021 9:08 AM Addendum Number: 1 Addendum Date: 05/25/2022 7:28:26 AM MAC was used instead of moderate sedation for the patient. Landry Marr DO 05/25/2022 7:28:30 AM This report has been signed electronically.
--- NOTE | 2021-09-15 09:43 | OP.CCLET_ITS ---
05/25/2022 [facility] Re : Colonoscopy procedure for Sapphire Johnson This procedure was performed on Wednesday, September 15, 2021. My impressions and recommendations are as follows: Impressions : - Very poor rectal tone found on perianal exam. - The entire examined colon is normal. Biopsied. - One 4 mm polyp in the cecum, removed with a hot snare. Resected and retrieved. Recommendations : - Repeat colonoscopy in 5 years for surveillance based on pathology results. - Return to GI office in 2 weeks. - Continue present medications. My findings are described in the full procedure note, which is enclosed. If I can be of further assistance, please feel free to contact me at . Sincerely, Landry Friend, 09/15/2021 9:43:02 AM This report has been signed electronically.
[2021-09-15 09:45] VITALS: BP 89/43; BP 94/62; PULSE 79; RESP 16; O2SAT 100
[2021-09-15 09:50] VITALS: BP 89/43; BP 93/58; PULSE 78; RESP 16; O2SAT 99
[2021-09-15 09:55] VITALS: BP 89/43; BP 93/54; PULSE 83; RESP 16; TEMP 36.3; O2SAT 100
[2021-09-15 10:15] VITALS: BP 89/43
== END 2021-09-15 10:23 ==
LOC: EN 07:31 → AC 08:19
PROVIDERS: Anesthesiology; Visit Provider Internal Medicine Gastroenterology
PROC: 0DJD8ZZ Inspection of Lower Intestinal Tract, Via Natural or Artificial Opening Endoscopic (ICD-10-PCS; CPT 45378; principal; 2021-09-15 08:40)
DX: K63.5 Polyp of colon (principal); K29.50 Unspecified chronic gastritis without bleeding; K21.00 Gastro-esophageal reflux disease with esophagitis, without bleeding; R19.7 Diarrhea, unspecified; K59.00 Constipation, unspecified; R10.30 Lower abdominal pain, unspecified; Z20.822 Contact with and (suspected) exposure to COVID-19
CPT/HCPCS: 43239; 45380; 45385; 81025; 87426; 88305; 88313; 88342; J7120; J2405

== ENCOUNTER 2021-09-20 11:32 | Outpatient (CLI) | payer OTHER, SELFPAY ==
[2021-09-20 15:04] LABS: Chlamydia Trachomatis by PCR Negative (Negative); Neisserai gonorrhoeae by PCR Negative (Negative); Probe Check PASS; Sample Adequacy Control PASS; Specimen Processing Control PASS
== END 2021-09-20 23:59 | disposition home or self-care (01) ==
LOC: LABSPEC 11:33
PROVIDERS: Referring Provider Nurse Practitioner Women's Health; Visit Provider Nurse Practitioner Women's Health
DX: Z11.3 Encounter for screening for infections with a predominantly sexual mode of transmission (principal)
CPT/HCPCS: 87491; 87591

== ENCOUNTER 2021-09-23 18:22 | Outpatient (CLI) | payer OTHER, SELFPAY ==
--- NOTE | 2021-09-23 18:31 | US_ITS ---
STUDY: ULTRASOUND OF THE FEMALE PELVIS - COMPLETE REASON FOR EXAM: Female, 26 years old. IUD CHECK LMP: 09/09/2021 TECHNIQUE: Transabdominal and Transvaginal TECHNICAL QUALITY: Adequate. COMPARISON: None. FINDINGS: The uterus is anteverted and is in a midline position. The uterus measures 8.1 x 5 x 3.3 cm. Normal uterine cervix. The endometrium measures 2 mm in thickness, and is hyperechoic. There is no demonstrated endometrial mass. There is no demonstrated myometrial mass. I.U.D. - The patient does have an I.U.D. appropriately positioned The right ovary is visualized. The right ovary measures 3.1 x 1.9 x 1.1 cm. There is no right ovarian cyst or ovarian mass. There is no visualized right adnexal mass or complex lesion. There is normal arterial and normal venous vascularity. The left ovary is visualized. The left ovary measures 2.8 x 2.4 x 2.3 cm. There is no left ovarian cyst or ovarian mass. There is no visualized left adnexal mass or complex lesion. There is normal arterial and normal venous vascularity. There is minimal fluid in the cul-de-sac. US/Pelvic (Non ) IMPRESSION: IUD in the endometrium, appropriately positioned. Remainder is within normal limits Electronically Signed: Bari Rodrigez DO at 3:34 EST Tel , Service support ,
--- NOTE | 2021-09-23 18:32 | US_ITS ---
STUDY: ULTRASOUND OF THE FEMALE PELVIS - COMPLETE REASON FOR EXAM: Female, 26 years old. IUD CHECK LMP: 09/09/2021 TECHNIQUE: Transabdominal and Transvaginal TECHNICAL QUALITY: Adequate. COMPARISON: None. FINDINGS: The uterus is anteverted and is in a midline position. The uterus measures 8.1 x 5 x 3.3 cm. Normal uterine cervix. The endometrium measures 2 mm in thickness, and is hyperechoic. There is no demonstrated endometrial mass. There is no demonstrated myometrial mass. I.U.D. - The patient does have an I.U.D. appropriately positioned The right ovary is visualized. The right ovary measures 3.1 x 1.9 x 1.1 cm. There is no right ovarian cyst or ovarian mass. There is no visualized right adnexal mass or complex lesion. There is normal arterial and normal venous vascularity. The left ovary is visualized. The left ovary measures 2.8 x 2.4 x 2.3 cm. There is no left ovarian cyst or ovarian mass. There is no visualized left adnexal mass or complex lesion. There is normal arterial and normal venous vascularity. There is minimal fluid in the cul-de-sac. US/Transvaginal Non- IMPRESSION: IUD in the endometrium, appropriately positioned. Remainder is within normal limits Electronically Signed: Bari Rodrigez DO at 3:34 EST Tel , Service support ,
== END 2021-09-23 23:59 | disposition short-term general hospital (02) ==
PROVIDERS: Visit Provider Nurse Practitioner Women's Health
DX: Z30.431 Encounter for routine checking of intrauterine contraceptive device (principal); N80.9 Endometriosis, unspecified
CPT/HCPCS: 76830; 76856

== ENCOUNTER 2021-09-29 15:53 | Outpatient (CLI) | payer OTHER, SELFPAY ==
[2021-10-01 21:07] LABS: Endomysial Antibody IgA Negative (Negative)
[2021-10-02 16:11] LABS: Immunoglobulin A 167 mg/dL (87-352); t-Transglutaminase IgA <2 U/mL (0-3)
== END 2021-09-29 23:59 | disposition short-term general hospital (02) ==
LOC: LAB 15:55
PROVIDERS: Visit Provider Internal Medicine Gastroenterology
DX: K29.60 Other gastritis without bleeding (principal)
CPT/HCPCS: 36415; 82784; 83516; 86255

== ENCOUNTER 2021-09-30 16:18 | Outpatient (CLI) | payer OTHER, SELFPAY ==
[2021-10-05 14:47] LABS: H. PYLORI STOOL AG Negative (Negative)
== END 2021-09-30 23:59 | disposition short-term general hospital (02) ==
LOC: LAB 16:19
PROVIDERS: Visit Provider Internal Medicine Gastroenterology
DX: Z00.00 Encounter for general adult medical examination without abnormal findings (principal)

== ENCOUNTER 2021-11-22 07:21 | Outpatient (CLI) | payer OTHER, SELFPAY ==
--- NOTE | 2021-11-22 07:25 | CT_ITS ---
STUDY: CT ABDOMEN AND PELVIS WITH CONTRAST REASON FOR EXAM: Female, 26 years old. right lower quadrant pain RADIATION DOSAGE (If Supplied By Facility): CTDIvol = ( 8.28 ) mGy, DLP = ( 340.16 ) mGycm TECHNIQUE: Transaxial images were obtained from the dome of the diaphragm to the symphysis pubis with oral contrast. Oral and amp;amp; IV Readi-CAT and amp;amp; 100mL Isovue-300 was administered. Sagittal and coronal images were reconstructed. Individualized dose optimization techniques were used for this CT. COMPARISON: None. FINDINGS: The visualized lung bases are unremarkable. The visualized portions of the heart are within normal limits. Normal liver. There is non-visualization of the gallbladder, which may be secondary to either contraction or a prior cholecystectomy. Normal spleen. Normal pancreas. Normal bilateral adrenal glands. Normal right kidney. Normal left kidney. Normal visualized stomach. Normal small intestine. Normal colon. There are surgical clips in the region of the appendix consistent with a prior appendectomy. Normal abdominal aorta. Normal inferior vena cava. Normal retroperitoneum. Normal urinary bladder. Intrauterine device within the uterus. Normal abdominal wall. Normal osseous structures. CT/Abdomen/Pelvis WITH Contrast IMPRESSION: Normal enhanced CT of the abdomen and pelvis. Electronically Signed: Binh Hilario MD at 8:29 EST ,
== END 2021-11-22 23:59 | disposition home or self-care (01) ==
LOC: CT 07:22
PROVIDERS: Referring Provider Internal Medicine Gastroenterology; Visit Provider Internal Medicine Gastroenterology
DX: R10.31 Right lower quadrant pain (principal); K59.00 Constipation, unspecified; K29.60 Other gastritis without bleeding
CPT/HCPCS: 74177; Q9967

== ENCOUNTER → 2022-02-05 | Outpatient (CLI) | payer OTHER, SELFPAY ==
--- NOTE | 2022-02-05 07:36 | RAD_ITS ---
EXAM: XR ABDOMEN, 1 VIEW CLINICAL INDICATION: sitz day three TECHNIQUE: Frontal supine view of the abdomen/pelvis. This report was created using [employer] report generation technology. COMPARISON: None. FINDINGS: LOWER THORAX: No acute pathology. GASTROINTESTINAL TRACT: 2 Sitz markers are present within the right side of the abdomen likely within the ascending colon. No evidence of bowel obstruction or ileus. ORGANS: No organomegaly. BONES/JOINTS: No acute pathology. SOFT TISSUES: IUD present within the pelvis. RAD/Abdomen Single View IMPRESSION: 2 residual Sitz markers within the ascending colon. Electronically Signed: Alen Lamb MD at 8:10 EDT ,
== END | disposition home or self-care (01) ==
LOC: RAD 07:29
PROVIDERS: Referring Provider Internal Medicine Gastroenterology; Visit Provider Internal Medicine Gastroenterology
DX: K59.00 Constipation, unspecified (principal)
CPT/HCPCS: 74018

== ENCOUNTER → 2022-02-07 | Outpatient (CLI) | payer OTHER, SELFPAY ==
--- NOTE | 2022-02-07 07:35 | RAD_ITS ---
STUDY: X-RAY - ABDOMEN/PELVIS REASON FOR EXAM: Female, 26 years old. sitz day five TECHNIQUE: Single AP view of the abdomen / pelvis. COMPARISON: None. FINDINGS: A single remaining Sitzmarks marker is seen in the right lower quadrant. There is an unremarkable bowel gas pattern. The visualized liver, spleen and kidneys are grossly normal in size and morphology. Intrauterine device. Normal visualized osseous structures. RAD/Abdomen Single View IMPRESSION: Single remaining Sitzmarks marker. Electronically Signed: Binh Hilario MD at 8:34 EDT ,
== END | disposition home or self-care (01) ==
LOC: RAD 07:32
PROVIDERS: Referring Provider Internal Medicine Gastroenterology; Visit Provider Internal Medicine Gastroenterology
DX: K59.00 Constipation, unspecified (principal)
CPT/HCPCS: 74018

== ENCOUNTER → 2022-03-09 | Outpatient (CLI) | payer OTHER, SELFPAY ==
[2022-03-11 00:07] LABS: Chlamydia By Nucleic Acid AMP Negative (Negative)
[2022-03-11 16:08] LABS: HPV Reflexed? NOT INDICATED
[2022-03-11 19:06] LABS: Gonococcus By Nucleic Acid AMP Negative (Negative)
== END | disposition home or self-care (01) ==
PROVIDERS: Visit Provider Obstetrics & Gynecology
DX: Z12.4 Encounter for screening for malignant neoplasm of cervix (principal); Z11.3 Encounter for screening for infections with a predominantly sexual mode of transmission
CPT/HCPCS: 87491; 87591; 88175; G0145

== ENCOUNTER → 2024-01-22 | Outpatient (CLI) | payer OTHER, SELFPAY ==
[2024-01-25 07:09] LABS: Chlamydia By Nucleic Acid AMP Negative (Negative); Gonococcus By Nucleic Acid AMP Negative (Negative)
== END | disposition home or self-care (01) ==
PROVIDERS: Referring Provider Obstetrics & Gynecology; Visit Provider Obstetrics & Gynecology
DX: Z34.90 Encounter for supervision of normal pregnancy, unspecified, unspecified trimester (principal)
CPT/HCPCS: 87086; 87088; 87491; 87591

== ENCOUNTER → 2024-02-21 | Outpatient (CLI) | payer OTHER, SELFPAY ==
[2024-02-21 14:58] LABS: Absolute Lymphocyte Count 1.76 X10^3/uL (0.83-4.51); Basophil# 0.02 X10^3/uL; Basophil% 0.3 % (0-1); Eosinophils% 1.3 % (0-5); Hematocrit 39.7 % (37-47); Hemoglobin 12.8 g/dL (12.0-15.0); Lymphocyte # 1.76 X10^3/ul (0.83-4.51); Lymphocyte % 23.6 % (19-41); Mean Corp Hgb Conc 32.2 g/dL (32-36); Mean Corpuscular Hgb 28.3 pg (27.0-32.0); Mean Corpuscular Volume 87.6 fL (81-99); Mean Platelet Vol. 10.5 fl (6.2-12.0); Monocyte# 0.52 X10^3/uL; NRBC Flagged by Analyzer 0 % (0-5); Neutrophil # 5.04 X10^3/uL (2.7-7.7); Neutrophil % 67.5 % (47-70); Platelet Count 193 K/mm3 (150-450); RBC Distribution Width CV 13.1 % (11.6-14.6); RBC Distribution Width SD 42.2 fl (35.1-43.9); Red Blood Count 4.53 M/mm3 (4.2-5.4); White Blood Count 7.5 K/mm3 (4.4-11.0)
[2024-02-21 16:05] LABS: HIV - WCH Non-Reactive (Nonreactive); Hepatitis B Surface Antigen Non-Reactive (Nonreactive); Hepatitis C Antibody Non-Reactive (Nonreactive); Rubella IgG Reactive (Nonreactive); Syphilis Antibodies Non-reactive
== END | disposition home or self-care (01) ==
PROVIDERS: Obstetrics & Gynecology; Referring Provider Nurse Practitioner Women's Health; Visit Provider Nurse Practitioner Women's Health
DX: Z34.81 Encounter for supervision of other normal pregnancy, first trimester (principal); Z31.430 Encounter of female for testing for genetic disease carrier status for procreative management
CPT/HCPCS: 36415; 85025; 86703; 86762; 86780; 86803; 86850; 86900; 86901; 87340

== ENCOUNTER → 2024-05-13 | Outpatient (CLI) | payer OTHER, SELFPAY ==
[2024-05-13 09:33] LABS: Absolute Lymphocyte Count 1.25 X10^3/uL (0.83-4.51); Absolute Neutrophil Count 6.3 X10^3/uL (2.0-7.7); Basophil# 0.01 X10^3/uL; Basophil% 0.1 % (0-1); Eosinophil# 0.11 X10^3/uL; Eosinophils% 1.3 % (0-5); Hematocrit 36.2 % (37-47); Hemoglobin 11.8 g/dL (12.0-15.0); Lymphocyte # 1.25 X10^3/ul (0.83-4.51); Lymphocyte % 15.2 % (19-41); Mean Corp Hgb Conc 32.6 g/dL (32-36); Mean Corpuscular Hgb 28.6 pg (27.0-32.0); Mean Corpuscular Volume 87.9 fL (81-99); Mean Platelet Vol. 9.7 fl (6.2-12.0); Monocyte# 0.45 X10^3/uL; Monocyte% 5.5 % (0-10); NRBC Flagged by Analyzer 0 % (0-5); Neutrophil # 6.32 X10^3/uL (2.7-7.7); Neutrophil % 77.2 % (47-70); Platelet Count 181 K/mm3 (150-450); RBC Distribution Width CV 13.4 % (11.6-14.6); RBC Distribution Width SD 43.7 fl (35.1-43.9); Red Blood Count 4.12 M/mm3 (4.2-5.4); White Blood Count 8.2 K/mm3 (4.4-11.0)
[2024-05-13 10:00] LABS: Glucose Challenge Gest 1H 50g 182 mg/dL (70-140)
[2024-05-13 10:37] LABS: HIV - WCH Non-Reactive (Nonreactive); Syphilis Antibodies Non-reactive
== END | disposition home or self-care (01) ==
PROVIDERS: Referring Provider Obstetrics & Gynecology; Visit Provider Obstetrics & Gynecology
DX: Z34.90 Encounter for supervision of normal pregnancy, unspecified, unspecified trimester (principal); Z3A.22 22 weeks gestation of pregnancy; Z13.1 Encounter for screening for diabetes mellitus
CPT/HCPCS: 36415; 82950; 85025; 86703; 86780

== ENCOUNTER 2024-06-13 08:00 | Outpatient (RCR) | payer OTHER, SELFPAY | END 2024-06-17 23:59 | LOC: DC 08:00 | PROVIDERS: Referring Provider Obstetrics & Gynecology; Visit Provider Obstetrics & Gynecology | DX: O24.419 Gestational diabetes mellitus in pregnancy, unspecified control | CPT/HCPCS: 97802; 97803 ==

== ENCOUNTER → 2024-07-04 | Outpatient (CLI) | payer OTHER, SELFPAY ==
--- NOTE | 2024-07-04 12:21 | US_ITS ---
EXAM: US , LIMITED CLINICAL INDICATION: growth US TECHNIQUE: Real-time limited ultrasound of the maternal uterus with image documentation. COMPARISON: 09/23/2021. FINDINGS: FETUS: Single viable IUP. Estimated age: 34 weeks, 4 days. MARIBELL: 08/11/2024. EFW: Estimated weight: 2135 g (83%). BPD: 8.57 cm. HC: 1.63 cm. AC: 30.34 cm. FL: 6.67 cm. POSITION: Cephalic presentation. HEART RATE: heart rate: 132 bpm. PLACENTA: Anterior placenta. AMNIOTIC FLUID: Amniotic fluid volume is normal at 16.2 cm with maximal vertical pocket of 5.7 cm. CERVIX: The cervix is not well visualized. ADNEXA: The maternal ovaries are not visualized. US/OB Limited With Biometrics IMPRESSION: No acute findings. Single viable IUP with a weight of 2435 g and estimated gestational age of 34 weeks, 4 days. Electronically Signed: Derrick Curtis DO at 22:59 EDT ,
== END | disposition home or self-care (01) ==
LOC: OPUS 12:17
PROVIDERS: Referring Provider Advanced Practice Midwife; Visit Provider Advanced Practice Midwife
DX: O24.419 Gestational diabetes mellitus in pregnancy, unspecified control (principal); Z3A.00 Weeks of gestation of pregnancy not specified
CPT/HCPCS: 76816

== ENCOUNTER → 2024-07-29 | Outpatient (CLI) | payer OTHER, SELFPAY | END | disposition home or self-care (01) | LOC: LABSPEC 15:47 | PROVIDERS: Referring Provider Advanced Practice Midwife; Visit Provider Advanced Practice Midwife | DX: O24.419 Gestational diabetes mellitus in pregnancy, unspecified control (principal); Z3A.00 Weeks of gestation of pregnancy not specified | CPT/HCPCS: 87081 ==

== ENCOUNTER 2024-08-15 19:24 | Inpatient (IN) | payer OTHER, SELFPAY ==
[2024-08-15 19:18] VITALS: BMI 31.4
[2024-08-15 19:40] VITALS: RESP 18; TEMP 36.9
[2024-08-15 19:43] VITALS: BP 118/76; PULSE 103
[2024-08-15 19:44] VITALS: PULSE 97; O2SAT 97
[2024-08-15] MEDS: miSOPROStol 25 MCG TABLET VAGINAL (20:05)
[2024-08-15 20:08] LABS: Absolute Lymphocyte Count 1.43 X10^3/uL (0.83-4.51); Absolute Neutrophil Count 3.6 X10^3/uL (2.0-7.7); Basophil# 0.02 X10^3/uL; Basophil% 0.3 % (0-1); Eosinophil# 0.09 X10^3/uL; Eosinophils% 1.6 % (0-5); Hemoglobin 10.8 g/dL (12.0-15.0); Lymphocyte # 1.43 X10^3/ul (0.83-4.51); Lymphocyte % 24.8 % (19-41); Mean Corp Hgb Conc 32.7 g/dL (32-36); Mean Corpuscular Hgb 25.5 pg (27.0-32.0); Mean Platelet Vol. 11.7 fl (6.2-12.0); Monocyte# 0.61 X10^3/uL; Monocyte% 10.6 % (0-10); NRBC Flagged by Analyzer 0 % (0-5); Neutrophil # 3.58 X10^3/uL (2.7-7.7); Neutrophil % 62.2 % (47-70); Platelet Count 183 K/mm3 (150-450); RBC Distribution Width CV 13.6 % (11.6-14.6); RBC Distribution Width SD 38.5 fl (35.1-43.9); Red Blood Count 4.23 M/mm3 (4.2-5.4); White Blood Count 5.8 K/mm3 (4.4-11.0)
[2024-08-15 20:50] LABS: Syphilis Antibodies Non-reactive
[2024-08-15 21:17] LABS: Bedside Glucose 76 mg/dL (74-106)
[2024-08-15 22:15] LABS: Bedside Glucose 85 mg/dL (74-106)
[2024-08-16] VITALS (59 sets, daily range): BP systolic 95–123; BP diastolic 57–82; PULSE 75–200; RESP 14–18; TEMP 36.2–37.1; O2SAT 93–100
[2024-08-16 00:39] LABS: Bedside Glucose 83 mg/dL (74-106)
[2024-08-16] MEDS: Lactated Ringers 1,000 ML 999 ML IV (03:16)
[2024-08-16] MEDS: Oxytocin 15 Units/NS 250ml 15 UNITS/250 ML IV.SOLN 2 UNITS IV (04:06)
[2024-08-16 04:29] LABS: Bedside Glucose 79 mg/dL (74-106)
[2024-08-16] MEDS: 0.9% Saline Lock 10 ML Syringe IV (06:29)
[2024-08-16] MEDS: Ondansetron 4 MG/2 ML Vial IV (06:29)
[2024-08-16] MEDS: fentaNYL-bupivacaine (epidural) 100 ML BAG EPIDURAL ×2 (08:24→14:17)
[2024-08-16 08:26] LABS: Bedside Glucose 78 mg/dL (74-106)
[2024-08-16] MEDS: Lactated Ringers 1,000 ML 200 ML IV ×2 (11:18→16:49)
[2024-08-16 12:54] LABS: Bedside Glucose 85 mg/dL (74-106)
[2024-08-16] MEDS: Lactated Ringers 1,000 ML 500 ML IV (15:38)
[2024-08-16 15:46] LABS: Bedside Glucose 62 mg/dL (74-106)
[2024-08-16 16:10] LABS: Bedside Glucose 77 mg/dL (74-106)
[2024-08-16 17:35] LABS: Bedside Glucose 66 mg/dL (74-106)
[2024-08-16 17:53] LABS: Bedside Glucose 79 mg/dL (74-106)
[2024-08-16 18:50] LABS: Bedside Glucose 80 mg/dL (74-106)
[2024-08-16] MEDS: Acetaminophen 500 MG Tablet PO (19:24)
[2024-08-16 19:48] LABS: Bedside Glucose 77 mg/dL (74-106)
[2024-08-16] MEDS: Oxytocin 15 Units/NS 250ml 15 UNITS/250 ML IV.SOLN 83 UNITS IV (21:12)
[2024-08-16 21:41] LABS: Bedside Glucose 98 mg/dL (74-106)
[2024-08-17] MEDS: 0.9% Saline Lock 10 ML Syringe IV ×2 (00:17→01:27)
[2024-08-17] MEDS: Ondansetron 4 MG/2 ML Vial IV (01:27)
[2024-08-17 04:30] VITALS: BP 105/65; PULSE 108; RESP 16; TEMP 37.2; O2SAT 96
[2024-08-17 07:47] VITALS: BP 102/70; PULSE 110; RESP 16; TEMP 37.2; O2SAT 96
[2024-08-17 08:32] LABS: Bedside Glucose 107 mg/dL (74-106)
[2024-08-17] MEDS: Acetaminophen 500 MG Tablet 1000 MG PO ×2 (10:28→20:17)
[2024-08-17 11:45] VITALS: BP 112/80; PULSE 120; RESP 18; TEMP 37; O2SAT 96
[2024-08-17 11:50] VITALS: PULSE 89
[2024-08-17 12:29] LABS: Bedside Glucose 105 mg/dL (74-106)
[2024-08-17 15:12] VITALS: BP 106/68; PULSE 99; RESP 16; TEMP 36.6; O2SAT 97
[2024-08-17 16:19] LABS: Bedside Glucose 97 mg/dL (74-106)
[2024-08-17 20:00] VITALS: BP 105/74; PULSE 90; RESP 16; TEMP 36.6; O2SAT 98
[2024-08-17 21:45] LABS: Bedside Glucose 94 mg/dL (74-106)
[2024-08-18 02:00] VITALS: BP 112/71; PULSE 89; RESP 16; TEMP 36.6; O2SAT 97
[2024-08-18] MEDS: Naproxen 500 MG Tablet PO (02:17)
[2024-08-18 08:33] VITALS: BP 103/72; PULSE 85; RESP 18; TEMP 36.5; O2SAT 98
[2024-08-18] MEDS: Senna/Docusate Sodium 1 Tablet PO (08:51)
[2024-08-18 12:45] VITALS: BP 130/85; RESP 18; TEMP 36.7; O2SAT 97
== END 2024-08-18 13:25 | disposition home or self-care (01) | DRG 807 ==
PROVIDERS: Admitting Provider Advanced Practice Midwife; Referring Provider Advanced Practice Midwife; Visit Provider Advanced Practice Midwife
DX: O24.415 Gestational diabetes mellitus in pregnancy, controlled by oral hypoglycemic drugs (principal); Z37.0 Single live birth; G89.29 Other chronic pain; O69.1XX0 Labor and delivery complicated by cord around neck, with compression, not applicable or unspecified; O70.0 First degree perineal laceration during delivery; O77.0 Labor and delivery complicated by meconium in amniotic fluid; O99.892 Other specified diseases and conditions complicating childbirth; R10.2 Pelvic and perineal pain; Z3A.39 39 weeks gestation of pregnancy
CPT/HCPCS: 59025; 59050; 82962; 85025; 86780; 86850; 86900; 86901; 99221; J7120; A4216; G0378; J2405

== ENCOUNTER → 2024-11-28 | Outpatient (CLI) | payer SELFPAY ==
--- NOTE | 2024-11-28 08:51 | US_ITS ---
PROCEDURE: PELVIC W/ TRANSVAGINAL REASON FOR EXAM: LOST IUD STRINGS COMPARISON: None. TECHNIQUE: Transvaginal pelvic ultrasound. Color and spectral doppler analysis of the ovaries. FINDINGS: Measurements: Uterus measures 10.4 x 6.7 x 4.4 cm. Right ovary measures 3.6 x 2.6 x 2 cm. Left ovary measures 2.5 x 2 x 1.6 cm. Multiple ovarian follicles detected. Normal ovarian blood flow. IUD detected. 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 DOPPLER: Color Doppler: Normal color flow doppler signal at both ovaries. Spectral Doppler: Normal arterial inflow and venous outflow signal at both ovaries. US/Pelvic w/ Transvaginal IMPRESSION: IUD detected although does appear to be some malrotated position of i within th e fundal myometrium. Reading Location: [id number]
== END | disposition home or self-care (01) ==
LOC: OPUS 08:49
PROVIDERS: Referring Provider Obstetrics & Gynecology; Visit Provider Obstetrics & Gynecology
DX: T83.32XA Displacement of intrauterine contraceptive device, initial encounter (principal); X58.XXXA Exposure to other specified factors, initial encounter
CPT/HCPCS: 76830; 76856

== ENCOUNTER → 2025-01-03 | Outpatient (CLI) | payer OTHER, SELFPAY ==
[2025-01-03 10:10] LABS: Hematocrit 42.3 % (37-47); Hemoglobin 13.7 g/dL (12.0-15.0); Mean Corp Hgb Conc 32.4 g/dL (32-36); Mean Corpuscular Hgb 27.2 pg (27.0-32.0); Mean Corpuscular Volume 84.1 fL (81-99); Mean Platelet Vol. 10.4 fl (6.2-12.0); Platelet Count 212 K/mm3 (150-450); RBC Distribution Width CV 13.7 % (11.6-14.6); RBC Distribution Width SD 42.2 fl (35.1-43.9); Red Blood Count 5.03 M/mm3 (4.2-5.4); White Blood Count 5.5 K/mm3 (4.4-11.0)
== END | disposition home or self-care (01) ==
LOC: LAB 09:35
PROVIDERS: Referring Provider Obstetrics & Gynecology; Visit Provider Obstetrics & Gynecology
DX: Z01.818 Encounter for other preprocedural examination (principal)
CPT/HCPCS: 36415; 85027; 86850; 86900; 86901

== ENCOUNTER 2025-01-07 12:40 | Day surgery (SDC) | payer OTHER, SELFPAY ==
[2025-01-07] VITALS (8 sets, daily range): BP systolic 101–134; BP diastolic 70–82; PULSE 65–103; RESP 16–20; TEMP 36.3–36.9; O2SAT 99–100; BMI 29.9
[2025-01-07 13:38] LABS: Internal QC Validated? YES +Cl - CLEAR BKGD; Pregnancy, Urine Negative Negative
--- NOTE | 2025-01-07 13:54 | HP.PCM_ITS ---
History and Physical Date of Admission: 01/07/25 Intake Vital Signs 10/07/2513:50 11/21/2509:40 Height 5 ft 4 in 5 ft 4 in Weight: 175 lb 2 oz BMI 30.0 BP 122/78 H Intake Visit Reasons: 6 wk IUD check Laboratory Assistant Required: No Is patient in pain?: No Allergies No Known Allergies Allergy (Verified 11/21/24 10:39) Medications ?Medication ?Instructions ?Recorded ?Confirmed ?Type levonorgestrel 14 mcg/24 hr (up to 1 device intrauterine ONCE 11/21/24 03/0 03/12 History 3 yrs) 13.5 mg intrauterine device (Drea) Post menopausal: No Patient : No : No [facility] Medical History Contraceptive management Supervision of normal Gestational diabetes Encounter for IUD removal Constipation IUD check up Lymphocytic gastritis Easy bruising Dietary restriction Gastric reflux Non-smoker Alternating constipation and diarrhea Normal colonoscopy (~07/15/20) Dysmenorrhea Migraine Surgical History History of esophagogastroduodenoscopy (EGD) History of laparoscopy (~09/08/20) S/P cholecystectomy S/P appendectomy Family History Grandfather Esophageal cancer Social History adopted: No household members: spouse and other details: 's grandparents current occupational status: employed 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 current occupational exposures/hazards: Yes pets and animals: Yes pets and animals: dog(s) history of recent travel: No sexually active: Yes Smoking Status: Never smoker alcohol intake: never details: occasionally substance use type: does not use well-balanced diet: rarely or never caffeine: No eating out: 1-3 times/week during the past year weight has: increased > 10 lbs what type of physical activity do you participate in: walking frequency: 3-4 times per week seatbelt use: sometimes do you feel safe at home: Yes additional social history: : Fatemeh - Julieth DAY Details: RADHA RODRIGUEZ is a 29 year old who presents for IUD removal under anesthesia due to lost strings. History 1 Elective abortions Hx Para 0 Spontaneous abortions Hx # Term Pregnancies Ectopic pregnancies Hx # Pregnancies Multiple births # of living children 1 Past Pregnancies Del. Date Name GA/Weeks Outcome Route Bth Weight Infant Gen Labor Lgth Anesthesia Del Locatn Provider FOB 08/16/24 Aftab 39 live - full term NS VD Male epidural [facility] Fatemeh Delivery Date: 08/16/24 Last Updated by: Eli Mendoza RN See problem list for complications ROS Const ROS Unobtainable: All systems reviewed & are unremarkable except as noted in H Resp Resp: Reports system reviewed and no additional complaints, except as documented; Denies cough GI GI: Reports as per HPI Psych Psych: Reports system reviewed and no additional complaints, except as documented Exam Const General: cooperative, healthy appearing, comfortable and no acute distress Resp Effort & Inspection: normal respiratory effort General: bimanual renal exam normal bilaterally External Female Exam: normal appearance of the urethra Urethra: normal appearance of the urethra Speculum Exam - Vagina: normal appearance of the vagina Speculum Exam - Cervix: normal appearance of the cervix Bimanual Exam- Adnexa, other: normal adnexae and normal Pelvic Support: normal Other: The IUD strings are NOT visible today. Skin General: no rashes or lesions noted Psych Appearance: grossly normal Speech and Movement: speech and movement normal Coding Level of Care Code Off vis,est,level 3 Diagnoses IUD strings lost T83.32XA Assessment and Plan Assessment and Plan (1) IUD strings lost: Status: Acute Plan: ultrasound shows IUD embedded slightly in the myometrium at the fundus of the uterus. patient requesting removal After discussing the patient's diagnosis and treatment plan options, patient wishes to proceed with surgical management. I have discussed with the patient the risks, benefits, and alternatives of the procedure which include but are not limited to risks of anesthesia, bleeding, infection, possible damage to bowel, bladder, or surrounding vasculature which could lead to additional surgery to evaluate any complications. Patient agrees to procedure and wishes to proceed. ACOG/uptodate references given for additional information regarding procedure.
--- NOTE | 2025-01-07 13:55 | PCM.DC ---
Discharge Instructions Diet Discharge Diet: No restrictions DC O2, CPAP, BIPAP needs Home O2 Discharge instructions: No Dressing / Incision Discharge Activity: Return to Normal Activity, May Shower and May Take a Tub Bath (after 1 week) May resume sexual activity in: 1-2 weeks Weight Bearing Status: Weight bearing as tolerated Lifting Restrictions: none Dressing / Incision Call your doctor if you observe: Fever of 101 or Higher, Using more than 1 pad per hour, Shortness of breath and Uncontrolled pain Follow Up Care Please Follow Up With: Silvia Montanez DO When: Call [phone] to schedule appointment. Test Results: Test results from this visit will be discussed in further detail at your follow-up appointment, if applicable. Discharge Plan Admission Primary Reason for Your Visit: hysteroscopy Attending Provider: Silvia Montanez Primary Care Provider: May Segura Primary Instructions Print Language: Djiboutian Discharge Orders/Prescriptions Prescriptions: No Action Drea 14 mcg/24 hr (3 yrs) 13.5 mg intrauterine device 1 device intrauterine ONCE Rx Instructions: as a single dose Referrals / Follow Up: Care Physician,May Primary [Primary Care Provider] - Disposition Disposition (needs filled in before D/C Order can be placed): Home, Self Care
--- NOTE | 2025-01-07 14:23 | PRE.ANES_ITS ---
ASA Classification* ASA Classification ASA Classification: 2 Assessment & Plan Anesthesia* Anesthesia Assessment Anesthesia Assessment: Discussed sedation and/or anesthesia options, risks, benefits, and alternatives with patient/parents/legal guardian/POA. Questions invited. The patient/parents/legal guardian/POA seems to understand and agrees to proceed with anesthesia plan. Reviewed the physical assessment, medical history, allergy history and patient home medications list prior to surgery/procedure/anesthetic and documented any changes. Performed airway and anesthesia risk assessments. Anesthesia Type Anesthesia Type: MAC History Source History Obtained from:: Patient and Chart Anesthesia Focused Assessment* Temperature: 97.3 F Pulse Rate: 103 Blood Pressure: 134/82 Respiratory Rate: 16 Pulse Ox: 100 Oxygen Delivery Method: Room Air Airway Assessment Mouth opens: 1 cm Mallampati Score: I Teeth Condition: Chipped/Broken (Chipped tooth #9.) Neck Range of motion (ROM): Full ROM Focused Labs Anesthesia Preop lab: CBC WBC 5.5 K/mm3 (4.4-11.0) 01/03/25 09:45 01/03/25 RBC 5.03 M/mm3 (4.2-5.4) 01/03/25 09:45 01/03/25 Hgb 13.7 g/dL (12.0-15.0) 01/03/25 09:45 01/03/25 Hct 42.3 % (37-47) 01/03/25 09:45 01/03/25 Plt Count 212 K/mm3 (150-450) 01/03/25 09:45 01/03/25 CHEMISTRY POC Glucose 94 mg/dL (74-106) 08/17/24 21:27 08/17/24 TSH 0.48 uIU/mL (0.358-3.74) 08/16/21 16:17 COAG Urine Test Negative Negative 01/07/25 12:59 01/07/25 Tst Clinic Negative 10/07/24 15:11 10/07/24 Pre-Assessment Diagnosis/Proposed Procedure Planned Operative Procedure(s): Removal, Foreign Body (IUD) possible Hysteroscopy, Insertion of IUD Anesthesia History 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 When Was Last Pacemaker Check QUESTION #4 FULL TEXT: You/Your Family Experience fever (hyperthermia) with Anesthesia Last Oral Intake Last Oral intake: Last Oral Intake NPO since 21:30 01/07/25 13:12 Meds taken in AM with sips of No 01/07/25 13:12 water? Meds patient instructed to take am of surgery PONV PONV - concrete form setter and finisher: PONV - concrete form setter and finisher Female Yes 12/30/24 15:14 HX of Motion Sickness Yes 12/30/24 15:14 HX of N/V After Surgery Yes 12/30/24 15:14 Non-Smoker Yes 12/30/24 15:14 Duration of Surgery greater No 12/30/24 15:14 than 60 minutes Number of Risk Factors 4 12/30/24 15:14 PONV Score Severe Risk 12/30/24 15:14 Height & Weight Height & Weight: Anesthesia: Height & Weight Height 5 ft 4 in 01/07/25 13:12 Weight: 79.3 kg 01/07/25 13:12 Body Mass Index (BMI) 29.9 01/07/25 13:12 Respiratory Assessment Respiratory Assessment - concrete form setter and finisher: Respiratory Tract Infection Hx - concrete form setter and finisher Hx Respiratory Tract Infection No 12/30/24 15:14 STOP Sleep Apnea STOP Sleep Apnea - concrete form setter and finisher: STOP Sleep Apnea - concrete form setter and finisher Hx Hypertension No 12/30/24 15:14 Hx Sleep Apnea No 12/30/24 15:14 CPAP No 06/10/24 16:07 BIPAP Do you snore loudly (louder No 12/30/24 15:14 than talking or can be heard Do you often feel tired/ No 12/30/24 15:14 fatigued/ sleepy during daytime? Has anyone observed you stop No 12/30/24 15:14 breathing during sleep? STOP Results Negative 12/30/24 15:14 QUESTION #5 FULL TEXT : Do you snore loudly (louder than talking or can be heard through closed doors)? 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 Specify any problems Hx of Preganancy in last 3 N/A 12/30/24 15:14 Months Nurse Filling Out Transfusion NBUCHER 12/30/24 15:14 & Questions: Date: 12/30/24 12/30/24 15:14 Time: 15:15 12/30/24 15:14 Patient unable to answer at this time (ie. confused, unrespo /Reproduction History /Reproductive History - concrete form setter and finisher: /Reproductive Hx- concrete form setter and finisher Hx Now No 12/30/24 15:14 Gestational Age (in weeks): EDC: Hx Hx Para Hx Section SAB No 12/30/24 15:14 Active Medications Active Medications: Current Medications Generic Name Dose Route Start Last Admin Trade Name Freq PRN Reason Stop Dose Admin Levonorgestrel 1 each 01/07/25 14:35 Levonorgestrel Iud (Liletta) INTRA-UTER 01/07/25 14:36 X1 ONE [facility] Medical History (Updated 12/30/24 @ 15:18 by Silvia Lawson) Contraceptive management Gestational diabetes Supervision of normal Encounter for IUD removal Constipation IUD check up Lymphocytic gastritis Easy bruising Dietary restriction Gastric reflux Non-smoker Alternating constipation and diarrhea Normal colonoscopy (~07/15/20) Dysmenorrhea Migraine Home Medications ?Medication ?Instructions ?Recorded ?Last Taken ?Type levonorgestrel 14 mcg/24 hr (up to 1 device intrauteri ne ONCE 11/21/24 01/07/25 History 3 yrs) 13.5 mg intrauterine device (Drea) Allergy/AdvReac Type Severity Reaction Status Date / Time No Known Allergies Allergy Verified 01/07/25 13:17 Family History Grandfather Esophageal cancer Surgical History History of esophagogastroduodenoscopy (EGD) History of laparoscopy (~09/08/20) S/P cholecystectomy S/P appendectomy Social History adopted: No household members: spouse and other details: 's grandparents current occupational status: employed current occupation: [employer] current occupational exposures/hazards: Yes pets and animals: Yes pets and animals: dog(s) history of recent travel: No sexually active: Yes Smoking Status: Never smoker alcohol intake: never details: occasionally substance use type: does not use well-balanced diet: rarely or never caffeine: No eating out: 1-3 times/week during the past year weight has: increased > 10 lbs what type of physical activity do you participate in: walking frequency: 3-4 times per week seatbelt use: sometimes do you feel safe at home: Yes additional social history: : Fatemeh - Julieth Review of Systems (Anesthesia) ROS Narrative System reviewed and no additional complaints, except as documented.
--- NOTE | 2025-01-07 14:35 | EMB_PTH ---
PATIENT: RADHA RODRIGUEZ LOC: [facility] – [place] U#:[id number] AGE/SX: 29/F ROOM: RE01/07/[address]: Dr. Silvia Montanez DO : 1995 BED: DIS: 01/07/2025 SPEC #: [id number] RECD: 01/08/25 09:36 STATUS: CRISTA BRODERICK #: [id number] [place]: 01/07/25 14:[address]: Silvia Montanez DEPT: SURGICAL PATHOLOGY RECD BY: Nir Stevens ENTERED: 01/08/25 09:36 SP TYPE: ENDOM BX/C ESTHER DR: No Primary Care Phys Tissues: A - Endometrium, NOS Procedures: Surgery Specimen Level IV HEADER OPERATION: Removal foreign body (IUD) hysteroscopy PRE-OP DIAGNOSIS: Retained IUD TISSUE SUBMITTED: A- Endometrial curettings MICROSCOPIC DIAGNOSIS A. Endometrium, curettage: * Inactive to focal secretory endometrium with widespread progestin effect. * Benign endocervical mucosa. MICROSCOPIC DESCRIPTION Slides are reviewed. GROSS DESCRIPTION A. Received in formalin in a container labeled with the patient's name, date of , and endometrial curettings are multiple red-ivey fragments of soft tissue admixed with blood and mucus measuring 2.5 x 1.5 x 0.5 cm in aggregate. Submitted in toto in A1. [facility] 01/08/2025 CPT:20947
[2025-01-07] MEDS: Lidocaine 1% (20 ml mdv) 20 ML Vial (15:10)
[2025-01-07] MEDS: Levonorgestrel IUD (Liletta) 1 EACH INTRA-UTER (15:12)
--- NOTE | 2025-01-07 15:27 | PCM.POST.ANE ---
Anesthesia: Postop Eval I Current Vital Signs Temperature: 97.3 F Pulse Rate: 80 Blood Pressure: 103/78 Respiratory Rate: 20 Pulse Ox: 100 Oxygen Delivery Method: Room Air Assessment Airway patent: Yes Spontaneous unlabored respirations: Yes Mental status: Awake and Calm nausea: No Vomiting: No Anesthesia Complication: No Fluid Hydration Crystalloid volume administer (ml): 50 Total IV fluid infused: 50 Progress Note Anesthesia document: Postop Eval 1 completed: Yes
--- NOTE | 2025-01-07 15:31 | OP.PCM_ITS ---
Problems Associated Problem List Diagnoses (1) IUD strings lost: Multi Select Codes Urinary/Genital Urinary/Genital CPT Codes: 89490 Insert IUD, 25729 Hysteroscopy,EMC, Polypectomy and 18829 Hysteroscopic removal of FB Operative Report (Standard) Operative Information Date of Procedure: 01/07/25 Pre-Operative Diagnosis: retained IUD Post-Operative Diagnosis: retained IUD, thickened endometrial tissue Surgery/Procedure Performed: hysteroscopy, removal of IUD, dilation and curettage manager cash: No Type of Anesthesia: MAC/Supplemental/Local RN Documented Start/Stop Times: Operation Date: 01/07/25 14:35 Case Time Into Pre-Op 01/07/25 12:51 Anesthesia Start 01/07/25 14:53 Into Room 01/07/25 14:53 Procedure Start 01/07/25 15:08 Procedure End 01/07/25 15:15 Anesthesia End 01/07/25 15:22 Out of Room 01/07/25 15:22 Procedure Start Time: 15:08 Procedure Stop Time: 15:15 Select all DRAINS/GRAFTS/IMPLANTS that apply: None Estimated Blood Loss: 10cc Specimen collected: No Description of surgery: Patient was prepped and draped in a normal sterile fashion under MAC anesthesia. A weighted speculum was placed in the vagina and the anterior lip of the cervix was grasped with a single-tooth tenaculum. A paracervical block was placed with 1% lidocaine. Cervix was progressively dilated to allow passage of a 5 mm hysteroscope. The lining was fully visualized and noted to have the IUD floating in the endometrium and not embedded as described in the ultrasound report. The iud strings were tucked up into the uterus. The hysteroscopic forceps were used to grasp the string and the IUD was removed without difficulty. The uterus sounded to 9 cm and noted to have some thickened tissue. Curettage was performed and a mild amount of tissue was sent to pathology. A liletta IUD was inserted into the uterus to the fundus and the strings were trimmed to 3 cm from the cervix. All instruments were removed from the vagina and excellent hemostasis was noted. Patient was awoken and taken to recovery in stable condition. Surgical Findings: IUD in the endometrium without perforation. Complications Complications: No Admit VTE Documentation VTE Present on Admission: No VTE Mechan Device Prophylaxis: SCD's VTE Pharm Prophylaxis ordered?: No
--- NOTE | 2025-01-07 20:25 | POSTOPAN2_ITS ---
Anesthesia Postop Eval I Sum Postop Eval Completion status Anesthesia document: Postop Eval 1 completed: Yes Anesthesia Postop Eval I Summary Anesthesia Postop Eval I Summary: Anesthesia Postop Eval I: Assessment Summary Airway patent Yes 01/07/25 15:28 EXCEL VBA DEVELOPER.BHOS Spontaneous unlabored Yes 01/07/25 15:28 EXCEL VBA DEVELOPER.OS respirations Mental status Awake,Calm 01/07/25 15:28 EXCEL VBA DEVELOPER.BHOS nausea No 01/07/25 15:28 EXCEL VBA DEVELOPER.BHOS Vomiting No 01/07/25 15:28 EXCEL VBA DEVELOPER.OS Anesthesia Postop Eval I: Fluid Summary Crystalloid volume administer 50 01/07/25 15:28 EXCEL VBA DEVELOPER.BHOS (ml) Colloids volume administered ( ml) Blood Product volume administered (ml) Total IV fluid infused 50 01/07/25 15:28 EXCEL VBA DEVELOPER.OS Anesthesia Postop Eval I: Summary Notes Anesthesia Complication No 01/07/25 15:28 EXCEL VBA DEVELOPER.[facility] Anesthesia Complication Comment: Post-operative progress note Anesthesia: Postop Eval II Evaluation Mental status: Awake and Calm Pain Level: 2 nausea: No Vomiting: No Complications Anesthesia Complication: No
--- NOTE | 2025-01-07 20:25 | PCM.POSTANE2 ---
Anesthesia Postop Eval I Sum Postop Eval Completion status Anesthesia document: Postop Eval 1 completed: Yes Anesthesia Postop Eval I Summary Anesthesia Postop Eval I Summary: Anesthesia Postop Eval I: Assessment Summary Airway patent Yes 01/07/25 15:28 MUTUAL FUNDS AGENT.BHOS Spontaneous unlabored Yes 01/07/25 15:28 MUTUAL FUNDS AGENT.OS respirations Mental status Awake,Calm 01/07/25 15:28 MUTUAL FUNDS AGENT.BHOS nausea No 01/07/25 15:28 MUTUAL FUNDS AGENT.BHOS Vomiting No 01/07/25 15:28 MUTUAL FUNDS AGENT.OS Anesthesia Postop Eval I: Fluid Summary Crystalloid volume administer 50 01/07/25 15:28 MUTUAL FUNDS AGENT.BHOS (ml) Colloids volume administered ( ml) Blood Product volume administered (ml) Total IV fluid infused 50 01/07/25 15:28 MUTUAL FUNDS AGENT.OS Anesthesia Postop Eval I: Summary Notes Anesthesia Complication No 01/07/25 15:28 MUTUAL FUNDS AGENT.[facility] Anesthesia Complication Comment: Post-operative progress note Anesthesia: Postop Eval II Evaluation Mental status: Awake and Calm Pain Level: 2 nausea: No Vomiting: No Complications Anesthesia Complication: No
== END 2025-01-07 16:30 | disposition home or self-care (01) ==
LOC: SDC 12:41 → AC 12:42
PROVIDERS: Referring Provider Obstetrics & Gynecology; Visit Provider Obstetrics & Gynecology
PROC: 0UDB8ZZ Extraction of Endometrium, Via Natural or Artificial Opening Endoscopic (ICD-10-PCS; CPT 58558; principal; 2025-01-07 14:25)
DX: T83.32XA Displacement of intrauterine contraceptive device, initial encounter (principal); X58.XXXA Exposure to other specified factors, initial encounter; Z30.433 Encounter for removal and reinsertion of intrauterine contraceptive device; R93.89 Abnormal findings on diagnostic imaging of other specified body structures
CPT/HCPCS: 58579; 58300; 58558; 00952; 81025; 88305; A4216; J2405